=== PATIENT | female | born 1975 | race African-American/Black ===

== ENCOUNTER 2017-07-04 08:48 | Emergency (ER) | payer OTHER ==
[2017-07-04 08:57] VITALS: TEMP 98.7; BMI 27.2
--- NOTE | 2017-07-04 09:54 | PDOC ---
History of Present Illness - History of Present Illness Initial Comments: 07/04/17 10:10 The patient is a 41 year old female, with a significant past medical history of type 1 diabetes, who presents to the emergency department c/o left-sided headache, nausea and vomiting s/p injury at work yesterday. Patient states she hit the left side of her forehead at work around 10:00 am yesterday on a wall when she went to go reach for something. She states she initially saw lights and had blurry vision, dizziness, light-headedness and a headache. Her forehead was became swollen and she used an ice pack. She states that her blurry vision lasted a few minutes but her heachache was persistent and did not go away. She also had some initial neck pain but it hasnt persisted. Today she says she woke up with a headache that she describes as constant, throbbing, diffuse and radiates to the back of her head but is concentrated on the left side where she hit her head. She states she feels heaviness in her head. She states that she drank coffee at work this morning and felt nauseous and vomited afterwards(1x). She states she regularly drinks coffee and has not experienced nausea and vomiting before after drinking coffee. She did not take anything for the pain. She rates her headache as 6/10 currently but states it was 8/10 yesterday. She continues to feel nauseous. She also reports increased tear production than normally. She denies fall, weakness, loc. She denies numbness or tingling in her extremities. She denies recent fevers, chills. She denies recent diarrhea or constipation. She denies recent dysuria, frequency, urgency or hematuria. She denies recent chest pain or shortness of breath. Allergies: shellfish, tramadol Past surgical history: Social history: Nonsmoker. Denies recreational drug use. Occasional EtOH use. Primary Care Physician: Raya Chen <Josephine Cruz - Last Filed: 07/04/17 10:10> <Didi Weiss - Last Filed: 07/04/17 13:48> - General Chief Complaint: Injury Stated Complaint: Headache Time Seen by Provider: 07/04/17 09:04 Past History <Josephine Cruz - Last Filed: 07/04/17 10:10> - Past Medical History COPD: No Diabetes: Yes (Right arm indewelling subcutaneous insulin pump) - Immunization History Immunization Up to Date: Yes - Suicide/Smoking/Psychosocial Hx Smoking History: Never smoked Have you smoked in the past 12 months: No Information on smoking cessation initiated: No Hx Alcohol Use: No Drug/Substance Use Hx: No Substance Use Type: None <Nae Weissbeth - Last Filed: 07/04/17 13:48> - Past Medical History Allergies/Adverse Reactions: Allergies Allergy/AdvReac Type Severity Reaction Status Date / Time shellfish derived Allergy Verified 07/04/17 08:53 tramadol Allergy Verified 07/04/17 08:53 Home Medications: Ambulatory Orders Insulin Lispro [Humalog] 0 unit SQ ASDIR 07/04/17 Review of Systems - Review of Systems Comments:: 07/04/17 10:10 GENERAL/CONSTITUTIONAL: No fever or chills. No weakness. HEAD, EYES, EARS, NOSE AND THROAT: +blurry vision. No ear pain or discharge. No sore throat. GASTROINTESTINAL: + nausea +vomiting ,no diarrhea or constipation. GENITOURINARY: No dysuria, frequency, or change in urination. CARDIOVASCULAR: No chest pain or shortness of breath. RESPIRATORY: No cough, wheezing, or hemoptysis. MUSCULOSKELETAL: No joint or muscle swelling or pain. No neck or back pain. SKIN: No rash NEUROLOGIC: +headache, +dizziness, +lightheadedness, no loss of consciousness, or change in strength/sensation. ENDOCRINE: No increased thirst. No abnormal weight change. HEMATOLOGIC/LYMPHATIC: No anemia, easy bleeding, or history of blood clots. ALLERGIC/IMMUNOLOGIC: No hives or skin allergy. <Josephine Cruz - Last Filed: 07/04/17 10:10> *Physical Exam - Vital Signs Last Vital Signs Temp Pulse Resp BP Pulse Ox 98.7 F 70 16 154/95 100 07/04/17 08:53 07/04/17 08:53 07/04/17 08:53 07/04/17 08:53 07/04/17 08:53 - Physical Exam Comments: 07/04/17 10:11 GENERAL: Awake, alert, and fully oriented, in no acute distress HEAD:+ abrasion to left side of forehead EYES: PERRLA, EOMI, sclera anicteric, conjunctiva clear ENT: Auricles normal inspection, hearing grossly normal, nares patent, oropharynx clear without exudates. Dry mucosa NECK: Normal ROM, supple, no lymphadenopathy, JVD, or masses LUNGS: Breath sounds equal, clear to auscultation bilaterally. No wheezes, and no crackles HEART: Regular rate and rhythm, normal S1 and S2, no murmurs, rubs or gallops ABDOMEN: Soft, nontender, normoactive bowel sounds. No guarding, no rebound. No masses EXTREMITIES: Normal range of motion, no edema. No clubbing or cyanosis. No cords, erythema, or tenderness NEUROLOGICAL: Cranial nerves II through XII grossly intact. Normal speech, normal gait SKIN: Warm, Dry, normal turgor, no rashes or lesions noted. <Josephine Cruz - Last Filed: 07/04/17 10:10> - Vital Signs Last Vital Signs Temp Pulse Resp BP Pulse Ox 98.7 F 70 16 154/95 100 07/04/17 08:53 07/04/17 08:53 07/04/17 08:53 07/04/17 08:53 07/04/17 08:53 <Didi Weiss - Last Filed: 07/04/17 13:48> Medical Decision Making - Medical Decision Making 07/04/17 12:34 Symptoms improved. DC home with head injury precautions. <Didi Weiss - Last Filed: 07/04/17 13:48> *DC/Admit/Observation/Transfer - Attestations Scribe Attestion: 07/04/17 10:11 Documentation prepared by Josephine Cruz, acting as medical writer for Didi Weiss MD. <Josephine Cruz - Last Filed: 07/04/17 10:10> - Discharge Dispostion Admit: No <Didi Weiss - Last Filed: 07/04/17 13:48> Diagnosis at time of Disposition: Head injury Qualifiers: Encounter type: initial encounter Qualified Code(s): S09.90XA - Unspecified injury of head, initial encounter - Discharge Dispostion Disposition: HOME Condition at time of disposition: Stable - Referrals Referrals: Raya Chen MD [Primary Care Provider] - - Patient Instructions Printed Discharge Instructions: DI for Closed Head Injury - Post Discharge Activity Forms/Work/School Notes: Back to Work
[2017-07-04] MEDS ORDERED: SODIUM CHLORIDE 1,000 ML IV STA (10:09)
[2017-07-04] MEDS ORDERED: ACETAMINOPHEN 1000 MG/100 ML VIAL (NON FORMULARY) IVPB ONE (10:09)
[2017-07-04] MEDS ORDERED: METOCLOPRAMIDE HCL INJECTION 10 MG/2 ML VIAL IVPB ONE (10:09)
[2017-07-04] MEDS ORDERED: METOCLOPRAMIDE HCL INJECTION 10 MG/2 ML VIAL ONE (10:32)
[2017-07-04] MEDS ORDERED: ACETAMINOPHEN INJECTION 100 ML IVPB ONE (10:32)
[2017-07-04 13:09] VITALS: BP 150/82; PULSE 75
== END 2017-07-04 13:10 | disposition home or self-care (01) ==
LOC: JER 08:48
PROC: 3E033NZ Introduction of Analgesics, Hypnotics, Sedatives into Peripheral Vein, Percutaneous Approach (ICD-10-PCS; principal; 2017-07-04)
PROC: 3E033GC Introduction of Other Therapeutic Substance into Peripheral Vein, Percutaneous Approach (ICD-10-PCS; 2017-07-04)
DX: S09.8XXA Other specified injuries of head, initial encounter (principal); W22.8XXA Striking against or struck by other objects, initial encounter; Y93.89 Activity, other specified; Y92.128 Other place in nursing home as the place of occurrence of the external cause; Y99.0 Civilian activity done for income or pay
CPT/HCPCS: 70450-TC; 84703; 99284-25